=== PATIENT | male | born 1990 | race Caucasian/White ===

== ENCOUNTER → 2021-04-13 | Emergency (ER) | payer OTHER ==
[~2021-04-13] VITALS: Ht 180.3 cm; Wt 79.8 kg
[~2021-04-13] MED LIST: [UNRECOGNIZED DRUG - REMARK]
[2021-04-13 23:37] LABS: ABSOLUTE NEUTROPHILS 1.9 thou/uL (1.4-8.2); BASOPHILS 1.8 % (0.0-2.0); EOSINOPHILS 1.7 % (0.0-3.0); LYMPHOCYTES 32.5 % (24.0-44.0); MCH 34.6 pg (26.0-34.0); MCV 101.7 fL (80.0-100.0); PLATELET COUNT 170 thou/uL (150-400); RBC 5.21 mil/uL (4.50-6.00); RDW 13.5 % (10.5-14.5); WBC 3.6 thou/uL (4.0-11.0)
[2021-04-13 23:40] LABS: ANION GAP 10 mmol/L (7-16); BUN 5 mg/dL (7-18); CALCIUM 8.9 mg/dL (8.5-10.1); CHLORIDE 104 mmol/L (98-107); CO2 32 mmol/L (21-32); GLUCOSE 121 mg/dL (74-106); POTASSIUM 4.1 mmol/L (3.5-5.1); SODIUM 146 mmol/L (136-145)
[2021-04-13 23:46] LABS: ALBUMIN 4.7 g/dL (3.4-5.0); LIPASE 194 U/L (73-393); SGOT 205 U/L (15-37); SGPT 160 U/L (16-63); TOTAL PROTEIN 8.5 g/dL (6.4-8.2)
[2021-04-13 23:51] LABS: SALICYLATE < 2.8 mg/dL (2.8-20.0)
[2021-04-14 00:02] LABS: URINE BILIRUBIN NEGATIVE (Negative); URINE BLOOD NEGATIVE (Negative); URINE CLARITY CLEAR; URINE COLOR YELLOW; URINE GLUCOSE-RANDOM* NEGATIVE (Negative); URINE KETONES NEGATIVE (Negative); URINE LEUKOCYTES-REFLEX NEGATIVE (Negative); URINE NITRITE-REFLEX NEGATIVE (Negative); URINE PROTEIN (DIPSTICK) NEGATIVE (Negative); URINE UROBILINOGEN 0.2 E.U./dl (0.2-1.0)
[2021-04-14 00:08] LABS: AMP/METHAMP Negative (Negative); BARBITURATES Negative (Negative); BENZODIAZEPINES Negative (Negative); COCAINE Negative (Negative); METHADONE Negative (Negative); OPIATES Negative (Negative); PCP Negative (Negative)
--- NOTE | 2021-04-14 07:05 | EKG ---
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
[2021-04-14 09:03] VITALS: BP 125/92
--- NOTE | 2021-04-14 15:46 | EKG ---
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
== END ==
LOC: ER 20:47
PROVIDERS: Emergency Medicine
DX: F10.129 Alcohol abuse with intoxication, unspecified (principal); Z20.822 Contact with and (suspected) exposure to COVID-19; F41.9 Anxiety disorder, unspecified; F32.9 Major depressive disorder, single episode, unspecified; F20.9 Schizophrenia, unspecified; Z88.1 Allergy status to other antibiotic agents; Y90.8 Blood alcohol level of 240 mg/100 ml or more